=== PATIENT | female | born 1980 | race Caucasian/White ===

== ENCOUNTER 2020-12-07 08:02 | Day surgery (SDC) | payer OTHER ==
[2020-12-02 11:52] LABS: Hemoglobin 12.8 g/dL (12.0-15.5); Mean Corpuscular HGB CONC 30.9 g/dL (32.0-36.0); Mean Corpuscular Hemoglobin 26.6 pg (27.0-33.0); Mean Corpuscular Volume 85.9 fl (81.6-98.3); Mean Platelet Volume 11.5 fl (7.4-10.4); Platelet Count 337 10x3/uL (150-450); RBC Distribution Width 13.1 % (11.5-14.5); Red Blood Cell (RBC) Count 4.82 10x6/uL (3.90-5.03); White Blood Cell (WBC) Count 7.8 10x3/uL (3.5-10.5)
[2020-12-02 12:12] LABS: BHCG - Serum Negative (NEGATIVE); Pregs Control Background? CLEAR/WHITE (CLR/WHITE); Pregs Control Bar Appear? YES (CONTROL BAR)
[2020-12-02 17:39] LABS: SARS-CoV-2 PCR by NAA Not Detected (NotDetected)
[2020-12-03 15:30] VITALS: BMI 47.4
[2020-12-07] MEDS ORDERED: CeleCOXIB 100 MG CAP ONE (08:11)
[2020-12-07] MEDS ORDERED: Lidocaine 1% MPF 2 ML VIAL ONE (08:11)
[2020-12-07] MEDS ORDERED: Gabapentin 300 MG CAP ONE (08:11)
[2020-12-07] MEDS ORDERED: Famotidine/PF 20 mg/2ml Vial ONE (08:12)
[2020-12-07] MEDS ORDERED: Fentanyl 250 MCG/5 ML VIAL ONE (08:46)
[2020-12-07] MEDS ORDERED: PROPOFOL 20 ML ONE (08:46)
[2020-12-07] MEDS ORDERED: Dexamethasone 20 MG/5 ML VIAL ONE (08:47)
[2020-12-07] MEDS ORDERED: Rocuronium Bromide 10 MG/ML (10ML VIAL) ONE (08:47)
[2020-12-07] MEDS ORDERED: Lidocaine 1% PF 5 ML VIAL ONE (08:47)
[2020-12-07] MEDS ORDERED: Ondansetron PF 4 MG/2 ML Vial ONE ×2 (08:47→12:16)
[2020-12-07] MEDS ORDERED: Midazolam HCl 2 mg/2 ml Vial ONE (09:38)
[2020-12-07] MEDS ORDERED: Scopolamine 1.5 mg/72 hour Patch ONE (09:39)
[2020-12-07] MEDS ORDERED: EPINEPHrine 1 MG/ML AMP ONE (10:15)
[2020-12-07] MEDS ORDERED: Bupivacaine PF 0.5% 30 ML VIAL ONE (10:15)
[2020-12-07] MEDS ORDERED: PHENYLEPHRINE-NS 100 MCG/ML 10 ML SYRINGE ONE (10:27)
[2020-12-07] MEDS ORDERED: ceFAZolin 2 GM/DEX 5% 100 ML BAG ONE (10:28)
[2020-12-07] MEDS ORDERED: Glycopyrrolate 0.2 MG/ML 5 ML SYRINGE ONE (11:17)
[2020-12-07] MEDS ORDERED: Ketorolac Tromethamine 30 MG/ML VIAL ONE (11:31)
[2020-12-07] MEDS ORDERED: Fentanyl 100 MCG/2 ML VIAL ONE (12:15)
[2020-12-07] MEDS ORDERED: Ropivacaine 0.2% 550 ML 550 ML NERVE BLCK SCH (12:45)
[2020-12-07] MEDS ORDERED: Ropivacaine 0.2% 550 ML 750 ML NERVE BLCK SCH (12:45)
[2020-12-07] MEDS ORDERED: HYDROcodone/Acetaminophen 5/325 mg Tablet ONE ×2 (13:27→14:44)
== END 2020-12-07 16:20 | disposition home or self-care (01) ==
LOC: CSHSDC 08:02
PROVIDERS: ATTEND Obstetrics & Gynecology
PROC: 0UT74ZZ Resection of Bilateral Fallopian Tubes, Percutaneous Endoscopic Approach (ICD-10-PCS; principal; 2020-12-07)
PROC: 0UT94ZZ Resection of Uterus, Percutaneous Endoscopic Approach (ICD-10-PCS; principal; 2020-12-07)
DX: D25.9 Leiomyoma of uterus, unspecified (principal); N88.8 Other specified noninflammatory disorders of cervix uteri; N80.0 Endometriosis of uterus; N83.8 Other noninflammatory disorders of ovary, fallopian tube and broad ligament; N32.89 Other specified disorders of bladder; N73.6 Female pelvic peritoneal adhesions (postinfective); J45.909 Unspecified asthma, uncomplicated; E66.9 Obesity, unspecified; Z68.42 Body mass index [BMI] 45.0-49.9, adult; Z91.010 Allergy to peanuts; Z79.1 Long term (current) use of non-steroidal anti-inflammatories (NSAID); Z79.891 Long term (current) use of opiate analgesic; Z90.49 Acquired absence of other specified parts of digestive tract; Z79.899 Other long term (current) drug therapy
CPT/HCPCS: 36415; 84703; 85027; 86850; 86900; 86901; 88307; A4306; J0171; J1100; J1885; J2250; J2405; J2704; J2795; J3010; S0020; S0028; U0003; U0005